=== PATIENT | female | born 1955 | race Caucasian/White ===

== ENCOUNTER → 2023-07-30 | Outpatient (CLI) | payer MEDICARE, OTHER | LOC: COL.RAD 09:21 | DX: M25.552 Pain in left hip (principal) | CPT/HCPCS: J0665; J3301; Q9967 ==

== ENCOUNTER → 2024-04-27 | Outpatient (CLI) | payer MEDICARE, OTHER ==
[~2024-04-27] MED LIST: Iohexol 300 - 10 ML VIAL IV ONE; Triamcinolone 40 MG/ML 1 ML VIAL IJ ONE
== END ==
LOC: COL.RAD 09:24
DX: M25.552 Pain in left hip (principal)
CPT/HCPCS: J0665; J3301; Q9967